=== PATIENT | female | born 1980 | race Caucasian/White ===

== ENCOUNTER 2017-01-08 18:47 | Observation (INO) ==
[2017-01-08 19:15] LABS: Bilirubin,Urine Negative (Negative); Blood,Urine Negative (Negative); Clarity,Urine Cloudy (Clear); Color,Urine Yellow (Yellow); Glucose,Urine (UA) Normal (Normal); Ketones,Urine 40 mg/dL (Negative); Leukocyte Esterase,Urine Moderate (Negative); Nitrite,Urine Negative (Negative); PH,Urine 6.5 pH Units (5.0-8.0); Protein,Urine Trace mg/dL (Neg-Trace); Specific Gravity,Urine 1.023 (1.010-1.025); Urobilinogen,Urine Normal (Normal)
[2017-01-08 19:20] LABS: Bacteria,Urine Moderate per hpf (None-Few); Hyaline Casts,Urine None Seen per lpf (None-Few); RBC,Urine 0-3 per hpf (0-3); Squamous Epithelial Cell,Urine Many per lpf (None-Few); WBC,Urine 15-30 per hpf (0-3)
[2017-01-08] MEDS ORDERED: 0.9 % Sodium Chloride 500 ML IVC ONE (21:43)
[2017-01-08] MEDS ORDERED: 0.9 % Sodium Chloride 1,000 ML IVC SCH (21:45)
[2017-01-08] MEDS ORDERED: clonazePAM 0.5 MG TABLET PO PRN ×2 (22:07→23:41)
--- NOTE | 2017-01-08 22:25 | OB/GYN History & Physical ---
Date of Encounter: 01/08/17 Time of Encounter: 22:12 Assessment and Plan (1) 34 weeks gestation of Current visit: Yes Status: Acute (2) uterine contractions in third trimester, antepartum Current visit: Yes Status: Acute SVE ft/thick per RN, repeat SVE unchanged (3) AMA (advanced maternal age) multigravida 35+ Current visit: Yes Status: Acute Pt had normal NT and normal cell free DNA Qualifiers: Trimester: third trimester Qualified Code(s): O09.523 - Supervision of elderly multigravida, third trimester (4) Gestational diabetes mellitus Current visit: Yes Status: Acute Pt reports glucose has been well controlled Qualifiers: Gestational diabetes mellitus control: diet-controlled Trimester: third trimester Qualified Code(s): O24.410 - Gestational diabetes mellitus in , diet controlled (5) Two vessel umbilical cord in kaur , antepartum Current visit: Yes Status: Acute Last growth US 12/23 WNL, will repeat US tonight (6) Anxiety Current visit: Yes Status: Acute Pt on Klonipin. Will continue home med. (7) Depression affecting in third trimester, antepartum Current visit: Yes Status: Acute Continue Zoloft (8) Variable heart rate decelerations, antepartum Current visit: Yes Status: Acute NST with intermittent variable declerations. Moderate variability and 15x15 accels present. Will get US to check fluid this evening. Plan for IV fluid bolus and prolonged monitoring. Pt has not taken her Klonipin for the last 3 days. Will give her this medication to prevent withdrawal. History of Present Illness Chief complaint: contractions/pressure HPI: Ms. Herring is a 36 year old female presenting at 34w2d with c/o contractions and pelvic pressure. She denies LOF or VB prior to arrival but has had a small amount of bloody show since her first SVE in triage. This has been complicated by AMA, diet controlled GDM, and 2 vessel cord. She last had a growth US for 2 vessel cord on 12/23 that showed NICK 19 and EFW 56%. Pt also reports a history of anxiety and depression for which she was on xanax and zoloft prior to . She is now taking zoloft 50mg daily and Klonipin 0.5mg BID PRN. She also reports tobacco use early in . Blood type A positive. Rubella immune. Serologies negative. GBS unknown. Past Med Surg Social Fam HX - Past Medical History Medical history: no medical history Psychiatric history: anxiety, panic disorder - Past Surgical History Surgical History: other - Social History Smoking Status: Former smoker Smokeless Tobacco Status: No Alcohol use: none Drug use: none - Family History Father Living Status: Still Living Hx Family Cancer: Yes (LUNG CANCER) Obstetrical History - Pregnancies : 3 Para: 2 Term: 2 : 0 Ab's: 0 Livin - History/Complications History/Complications: MERCEDES with first , full term delivery Medications and Allergies Klonopin 0.5 mg PO BID PRN 01/08/17 [History] Vit Calc,Iron,Folic [ Vitamins] 1 tab PO DAILY 01/08/17 [ History] Sertraline [Zoloft] 50 mg PO DAILY 01/08/17 [History] Allergies Penicillins Adverse Reaction (Verified 01/08/17 18:57) Rash Review of System OB All systems PM: reviewed and no additional remarkable complaints except as stated Exam - Constitutional Constitutional: well developed, well nourished, no acute distress - HEENT HEENT: Mucus Membranes Moist - Lungs Respiratory exam: CTAB - Cardiovascular Cardiovascular exam: RRR, +S1, +S2 - Abdomen Abdomen: Present: gravid, non tender - Extremities Extremities exam: normal inspection - Cervix Dilation: 0 (FT per RN) - Uterus Uterus exam: Present: normal size - Anus/Rectum Anus/Rectum: Present: normal perianal skin Results Abnormal lab results Urine Clarity Cloudy (Clear) A 01/08/17 18:57 Urine Ketones 40 mg/dL (Negative) H 01/08/17 18:57 Ur Leukocyte Esterase Moderate (Negative) H 01/08/17 18:57 Urine Microscopic WBC 15-30 per hpf (0-3) H 01/08/17 18:57 Ur Squamous Epith Cells Many per lpf (None-Few) H 01/08/17 18:57 Urine Bacteria Moderate per hpf (None-Few) H 01/08/17 18:57 Ur Culture Indicated? YES (NO) A 01/08/17 18:57 All other labs normal. - VTE Reasons for not Prescribing Prophylaxis: Treatment not Indicated - Low risk for VTE
[2017-01-09 00:06] LABS: Basophils % 0.3 %; Eosinophils # 0.2 K/mcL (0.0-0.6); Eosinophils % 1.1 %; Hemoglobin 11.5 g/dL (11.5-15.4); Immature Granulocytes % 1.3 % (0-4); Lymphocytes # 2.5 K/mcL (0.6-4.6); Lymphocytes % 17.6 %; Mean Corpuscular HGB Conc 33.8 g/dL (31.6-35.5); Mean Corpuscular Hemoglobin 30.2 pg (28.0-33.3); Mean Corpuscular Volume 89.2 fL (83.0-100.0); Mean Platelet Volume 10.4 fL (9.4-12.4); Monocytes # 0.9 K/mcL (0.0-1.3); Monocytes % 6.6 %; Neutrophils # 10.4 K/mcL (1.6-8.9); Platelet Count 274 K/mcL (140-400); Red Blood Count 3.81 M/mcL (3.82-4.97); Red Cell Distribution Width 13.2 % (11.5-14.5); Segmented Neutrophils % 73.1 %
[2017-01-09] MEDS ORDERED: Acetaminophen 325 MG TABLET PO ONE (03:40)
[2017-01-09] MEDS ORDERED: Prenatal Vit/FA 1 EACH TABLET PO SCH (09:00)
--- NOTE | 2017-01-09 10:01 | OB Labor Progress Note ---
Date of Encounter: 01/09/17 Time of Encounter: 09:59 Labor Progress Note - Subjective Subjective: Patient doing well, discussed POC with patient. Patient denies any questions or concerns. - Heart Tones Heart Tones: 130 bpm moderate variability - [place]: irregular - Interventions Interventions: Discussed patient and plan of care with Dr. Díaz. Patient is to be discharged to go to office for BPP. - Plan Plan: Discharge at this time. Patient taken to office for BPP and further evaluation per Dr. Díaz.
== END 2017-01-09 14:30 | disposition home or self-care (01) ==
LOC: 1NENULAB

== ENCOUNTER 2017-01-21 02:33 | Inpatient (IN) ==
--- NOTE | 2017-01-21 02:13 | OB/GYN History & Physical ---
Date of Encounter: 01/21/17 Time of Encounter: 02:09 Assessment and Plan (1) 36 weeks gestation of Current visit: Yes Status: Acute SVE by RN with cervical changes - from this morning Contractions are 2-4 min apart Admit to labor and delivery for active labor Continue FHR and toco, current baseline 150 with occasional late decels GBS negative A positive blood type BP 112/58 Will augment with Pitocin if needed for adequate contraction pattern Pain medication or epidural if requested Anticipate (2) Variable heart rate decelerations, antepartum Current visit: No Status: Acute NST with intermittent variable and late decels Plan for IV fluid bolus and monitoring Consideration for possible (3) Gestational diabetes mellitus Current visit: No Status: Acute patient reports glucose has been well-controlled Qualifiers: Gestational diabetes mellitus control: diet-controlled Trimester: third trimester Qualified Code(s): O24.410 - Gestational diabetes mellitus in , diet controlled (4) Two vessel umbilical cord in kaur , antepartum Current visit: No Status: Acute 2 vessel umbilical cord noted on US 01/08/17 (5) AMA (advanced maternal age) multigravida 35+ Current visit: No Status: Acute Qualifiers: Trimester: third trimester Qualified Code(s): O09.523 - Supervision of elderly multigravida, third trimester (6) Polyhydramnios Current visit: Yes Status: Acute Initial NICK 33 On last US 01/08/2017 NICK 14.79 Qualifiers: Fetus number: single or unspecified fetus Trimester: third trimester Qualified Code(s): O40.3XX0 - Polyhydramnios, third trimester, not applicable or unspecified History of Present Illness Chief complaint: Contractions HPI: Ms. Herring is a 36 year old female 36 weeks 1 day presents for contractions. She is a patient of OB Dr. Almanza, seen and evaluated yesterday in the office at 1300. Cervix 3cm/80%/-2. Scheduled for induction 01/27. Her estimated due date is 02/17/2017. has been complicated with gestational diabetes (diet controlled), 2 vessel cord, polyhydramnios NICK 33, and AMA. Reports contractions throughout the day with no regular intervals initially however at 2300 became more regular 4 to 5 minutes apart with a brief period of time that was 2 minutes apart. Currently is 4 minutes apart. Reports some vaginal spotting requiring 6 panty liners today after vaginal exam today, has been using for the past several weeks. Denies any big gush of clear fluid or water breaking. She reports a mild headache with some blurry vision. Also associated nausea without emesis. Denies any fever, recent illness, abdominal tenderness, or urinary symptoms. BPs have been normotensive throughout . She endorses diminished movements over the past 2 days. BPP score 8/8 at office visit. GBS negative today. HBV nonreactive, Rubella positive , other serologies reviewed and are negative. She is A positive blood type. Last , delivery within 10 minutes she reports after AROM. Past Med Surg Social Fam HX - Past Medical History Medical history: no medical history Psychiatric history: anxiety, panic disorder - Past Surgical History Surgical History: other - Social History Smoking Status: Former smoker Smokeless Tobacco Status: No Alcohol use: none Drug use: none - Family History Father Living Status: Still Living Hx Family Cancer: Yes (LUNG CANCER) Obstetrical History - Pregnancies : 3 Para: 2 Term: 2 : 0 Ab's: 0 Livin Medications and Allergies Klonopin 0.5 mg PO BID PRN 01/08/17 [History] Vit Calc,Iron,Folic [ Vitamins] 1 tab PO DAILY 01/08/17 [ History] Sertraline [Zoloft] 50 mg PO DAILY 01/08/17 [History] Allergies Penicillins Adverse Reaction (Verified 01/08/17 18:57) Rash Review of System OB All systems PM: reviewed and no additional remarkable complaints except as stated Exam - Constitutional Constitutional: well developed, well nourished, no acute distress - HEENT HEENT: Normocephaly, Mucus Membranes Moist - Neck Neck exam: full ROM, normal inspection, supple, trachea midline - Lungs Respiratory exam: CTAB - Cardiovascular Cardiovascular exam: RRR, +S1, +S2 - Abdomen Abdomen: Present: bowel sounds normal, gravid, non tender - Extremities Extremities exam: full ROM, normal capillary refill, normal inspection, pedal edema (mild) Deep Tendon Reflex Grade: 2+ Normal - Cervix Dilation: 5 (per RN) Effacement: 80 (per RN) - Uterus Uterus exam: Present: normal size Results Result Diagrams: 01/21/17 02:45 All other labs normal. - VTE Reasons for not Prescribing Prophylaxis: Treatment not Indicated - Low risk for VTE
[2017-01-21] MEDS ORDERED: Famotidine 20 MG/2 ML VIAL IVP PRN (02:36)
[2017-01-21] MEDS ORDERED: Metoclopramide 10 MG/2 ML VIAL IVP PRN (02:36)
[2017-01-21] MEDS ORDERED: Naloxone 0.4 MG/ML INJ IVP PRN (02:36)
[2017-01-21] MEDS ORDERED: Ringers Solution, Lactated 1,000 ML IVC SCH (02:45)
[2017-01-21 02:54] LABS: Red Blood Count 4.36 M/mcL (3.82-4.97)
[2017-01-21 02:56] LABS: Hematocrit 38.2 % (35.3-44.9); Hemoglobin 12.9 g/dL (11.5-15.4); Mean Corpuscular HGB Conc 33.8 g/dL (31.6-35.5); Mean Corpuscular Hemoglobin 29.6 pg (28.0-33.3); Mean Corpuscular Volume 87.6 fL (83.0-100.0); Mean Platelet Volume 10.7 fL (9.4-12.4); Platelet Count 277 K/mcL (140-400); Red Cell Distribution Width 13.3 % (11.5-14.5)
[2017-01-21 03:15] LABS: Lymphocytes # 2.5 K/mcL (0.6-4.6); Monocytes # 0.8 K/mcL (0.0-1.3); Neutrophils # 37.9 K/mcL (1.6-8.9)
[2017-01-21 03:17] LABS: Platelet Estimate Normal (Normal); Toxic Granulation Present (Not Present)
[2017-01-21 03:18] LABS: Polychromasia 1+ (Not Present)
[2017-01-21] MEDS ORDERED: Oxytocin 20 units/ LR 1000 mL 20 UNIT/1,000 ML BAG IVC ONE (03:56)
--- NOTE | 2017-01-21 04:07 | OB Labor Progress Note ---
Date of Encounter: 01/21/17 Time of Encounter: 04:03 Labor Progress Note - Subjective Subjective: Pt reports uc's getting stronger. No other c/o. - Vital Signs Vital Signs: AF - Cervix Cervix: 7/80/-2 - Heart Tones Heart Tones: Fair variability, late decels and variabiltiy are note , now improved - [place]: uc's q 2 min. - Interventions Interventions: AROM large amt clear fluid - Plan Plan: D/w pt options of proceeding with primary vs trial of labor with close observation of FHT's. Pt desires trial of labor and is aware of risk for emergent .
[2017-01-21] MEDS ORDERED: Lidocaine 1% 20 ML MDV ONE (04:33)
--- NOTE | 2017-01-21 04:54 | OB/GYN Procedure Note ---
Delivery - Delivery Date: 01/21/17 Provider: Anotny Almanza Intrapartum events: polyhydramnios (leukocytosis), other(please specify) Delivery induction: none Delivery monitor: external FHT, external uterine Anesthesia: local - Infant (s) A Delivery Date: 01/21/17 Delivery Time: 04:25 Presentation: vertex Position: NAJMA Route of delivery: Gender: Female Viability: Viable Pounds: 7 Ounces: 1 at 1 minute: 7 at 5 mins: 8 Shoulder Dystocia: not encountered Specimens collected: cord blood Placenta: spontaneous Cord: 2 umbilical vessels - Repair Episiotomy: none Laceration Description: Perineal - 1st Degree - Complications Delivery complications: none - Disposition Mom disposition: stable in LDR disposition: taken to nursery - Comments Comments: Pt presented at 36w1d in labor. FHT's noted to have occ variable and occ late decels. Pt now s/p of liveborn female infant. 1st degree laceration repaired with 3-0 vicryl with 2 interupted stitches under local anesthesia.
[2017-01-21] MEDS ORDERED: Measles/Mumps/Rubella Vacc 0.5 ML VIAL SQ PRN (06:00)
[2017-01-21] MEDS ORDERED: Oxytocin 20 units/ LR 1000 mL 20 UNIT/1,000 ML BAG IVC SCH (06:00)
[2017-01-21] MEDS ORDERED: Rho Immune Globulin 1,500 UNIT SYRINGE IM PRN (06:00)
[2017-01-21] MEDS ORDERED: clonazePAM 0.5 MG TABLET PO PRN (06:00)
[2017-01-21] MEDS: Acetaminophen 325 MG TABLET PO PRN ×2 (06:20→22:36)
[2017-01-21] MEDS: Prenatal Vit/FA 1 EACH TABLET PO SCH (08:54)
[2017-01-21] MEDS: Ibuprofen 600 MG TABLET PO PRN ×2 (10:15→18:58)
[2017-01-22 03:58] LABS: Basophils % 0.3 %; Segmented Neutrophils % 85.2 %
[2017-01-22 03:59] LABS: Basophils # 0.1 K/mcL (0.0-0.2); Eosinophils # 0.3 K/mcL (0.0-0.6); Eosinophils % 1.1 %; Hematocrit 29.6 % (35.3-44.9); Hemoglobin 9.8 g/dL (11.5-15.4); Lymphocytes # 2.1 K/mcL (0.6-4.6); Lymphocytes % 8.1 %; Mean Corpuscular HGB Conc 33.1 g/dL (31.6-35.5); Mean Corpuscular Hemoglobin 29.3 pg (28.0-33.3); Mean Corpuscular Volume 88.6 fL (83.0-100.0); Mean Platelet Volume 10.5 fL (9.4-12.4); Monocytes # 0.9 K/mcL (0.0-1.3); Monocytes % 3.3 %; Platelet Count 236 K/mcL (140-400); Red Blood Count 3.34 M/mcL (3.82-4.97); Red Cell Distribution Width 13.2 % (11.5-14.5)
[2017-01-22 04:19] LABS: Neutrophils # 22.2 K/mcL (1.6-8.9)
[2017-01-22 04:31] LABS: Platelet Estimate Normal (Normal)
[2017-01-22 04:32] LABS: Large Platelets Present (Not Present); Toxic Granulation Present (Not Present)
[2017-01-22 08:28] VITALS: BP 100/65
[2017-01-22] MEDS: Prenatal Vit/FA 1 EACH TABLET PO SCH (09:00)
[2017-01-22] MEDS: Ibuprofen 600 MG TABLET PO PRN (09:00)
--- NOTE | 2017-01-22 14:00 | Discharge Summary ---
Date of Encounter: 01/22/17 Time of Encounter: 13:58 - Discharge Diagnosis (1) (normal spontaneous vaginal delivery) Priority: Primary Status: Acute Comments: Pt meeting all milestones. (2) Leukocytosis, unspecified Priority: Secondary Status: Acute Comments: WBC with significant improvement . Qualifiers: Leukocytosis type: unspecified Qualified Code(s): D72.829 - Elevated white blood cell count, unspecified (3) Mother currently breast-feeding Priority: Secondary Status: Acute Comments: Breastpump rx given. - Discharge Medications Prescriptions: Ibuprofen [Motrin] 600 mg PO Q6HR PRN #60 tablet PRN Reason: MODERATE PAIN Docusate [Colace] 100 mg PO BID #60 capsule Home Medications: Klonopin 0.5 mg PO BID PRN 01/08/17 [History] Vit Calc,Iron,Folic [ Vitamins] 1 tab PO DAILY 01/08/17 [ History] Sertraline [Zoloft] 50 mg PO DAILY 01/08/17 [History] Docusate [Colace] 100 mg PO BID #60 capsule 01/22/17 [Rx] Ibuprofen [Motrin] 600 mg PO Q6HR PRN #60 tablet 01/22/17 [Rx] Allergies/Adverse Reactions: Allergies Penicillins Adverse Reaction (Verified 01/08/17 18:57) Rash Data Procedures and tests throughout hospitalization: Laboratory Tests 01/21/17 01/22/17 02:45 03:37 WBC 41.2 H* 26.1 H RBC 4.36 3.34 L Hgb 12.9 9.8 L D Hct 38.2 29.6 L MCV 87.6 88.6 MCH 29.6 29.3 MCHC 33.8 33.1 RDW 13.3 13.2 Plt Count 277 236 MPV 10.7 10.5 Immature Gran % 2.0 Seg Neutrophils % 86.0 85.2 Band Neutrophils % 6.0 H Lymphocytes % 6.0 8.1 Monocytes % 2.0 3.3 Eosinophils % 1.1 Basophils % 0.3 Neutrophils # 37.9 H 22.2 H Lymphocytes # 2.5 2.1 Monocytes # 0.8 0.9 Eosinophils # 0.3 Basophils # 0.1 Toxic Granulation Present A Present A Platelet Estimate Normal Normal Large Platelets Present A Polychromasia 1+ A Labs on day of discharge: Labs from last 24 hours 01/22/17 03:37 WBC 26.1 H RBC 3.34 L Hgb 9.8 L D Hct 29.6 L MCV 88.6 MCH 29.3 MCHC 33.1 RDW 13.2 Plt Count 236 MPV 10.5 Immature Gran % 2.0 Seg Neutrophils % 85.2 Lymphocytes % 8.1 Monocytes % 3.3 Eosinophils % 1.1 Basophils % 0.3 Neutrophils # 22.2 H Lymphocytes # 2.1 Monocytes # 0.9 Eosinophils # 0.3 Basophils # 0.1 Toxic Granulation Present A Platelet Estimate Normal Large Platelets Present A Date of admission: 01/21/17 02:34 Primary care physician: Madeleine Molina CNP Consults: 01/21/17 06:00 Consult to Civil Preparedness Officer [CONS] Routine Comment: Vaginal delivery, consult needed Discharging clinician: Leilani Rico Anticipated date of discharge: 01/22/17 - Patient Status Disposition: Home, Self-Care Condition: Good Functional capacity at discharge: independent ambulation Overall status at discharge: patient is progressing back to baseline - Discharge Instructions Follow Up With: Madeleine Molina CNP [Primary Care Provider] - Antony Almanza MD [Partnered Physician] - Additional Instructions: Perineal Care: Always wipe front to back Change your pad frequently Use your leandro bottle with warm water and spray front to back Do not douche, use tampons, have sexual intercourse or put anything in your vagina for 4-6 weeks after delivery Bleeding: Vaginal bleeding can last up to 6 weeks Your menstrual period may return as early as 6 weeks after you are discharged from the hospital Josef/Stitches Care: Vaginal Delivery Vaginal stitches will dissolve within 4-6 weeks Follow perineal care instructions Care Stitches will dissolve on their own If you have josef, they will need to be removed in the doctors office within 5-7 days. You may shower with stitches or josfe Drip plan or soapy water over the incision to clean. Pat dry gently with a clean towel. Make sure you completely dry under the skin folds DO NOT USE powders, lotions, rubbing alcohol or hydrogen peroxide on or around your incision. This will slow your wound healing It is normal to have soreness, burning, tingling, itchiness and/or numbness as your incision heals Activity: Rest frequently Do not lift anything heavier than a gallon of milk, up to 10-15 pounds No driving for 1-2 weeks for Vaginal delivery No driving for 2-4 weeks for delivery Take stairs slowly, one at a time Gradually increase your daily activity until you are back to your normal routine Do not exercise until you have had your follow-up appointment Bathing: Take a shower daily Do not take a tub bath for the first 4 weeks Diet: Drink plenty of water and fruit juices Eat a well-balanced diet with foods high in fiber such as fruits and vegetables Depression: Your hormones have a major impact on your feelings and emotions. Hormone imbalance may cause changes in your mood, creating unfamiliar thoughts and actions. Support is available to help you understand and cope with these feelings and mood changes. If you answer yes to any of the following questions, please call your health care provider: Are you having trouble sleeping? Are you feeling isolated? Have you lost your appetite? Are you having thoughts of hurting yourself or others? WARNING SIGNS: Heavy bleeding from the vagina (blood is bright red and soaks a sanitary pad in an hour or less.) Passing a blood clot larger than your fist Discharge from the vagina that has a bad odor Temperature over 100.4 F, or if you feel cold and have chills An episiotomy site that is warm, swollen or oozing. Use a mirror if needed Urination (pee) that is painful, very red and swollen or leaking fluid An incision that is painful, very red and swollen and leaking fluid An incision that has come open Breasts that are painful or full with flu like symptoms Redness, warmth or swelling in the calf of your leg Trouble breathing, dizziness, visual disturbance or faintness *Notify your health care provider immediately or go to the nearest Emergency Room if you experience any of the above signs.* To contact the nurses station 24 hours a day, For non-urgent, routine questions, please call the office at - Diet and Activity Activity: increase activity as tolerated Hospital Course Reason for admission: active labor Delivery: Episiotomy: none Laceration: 1st degree Other procedures: none complications: none Discharge diagnosis: IUP at term delivered baby: female Hospital course: - Delivery Date: 01/21/17 Provider: Antony Almanza Intrapartum events: polyhydramnios (leukocytosis), other(please specify) Delivery induction: none Delivery monitor: external FHT, external uterine Anesthesia: local - (s) Infant A Infant Delivery Date: 01/21/17 Delivery Time: 04:25 Presentation: vertex Position: NAJMA Route of delivery: Gender: Female Viability: Viable Pounds: 7 Ounces: 1 at 1 minute: 7 at 5 mins: 8 Shoulder Dystocia: not encountered Specimens collected: cord blood Placenta: spontaneous Cord: 2 umbilical vessels - Repair Episiotomy: none Laceration Description: Perineal - 1st Degree - Complications Delivery complications: none - Disposition Mom disposition: discharge home PPD#1 [place] disposition: observation in nursery Time Attestation: Total time spent providing and/or coordinating discharge services: Time Spent: Less than 30 minutes Exam - Constitutional Vitals: Temp Pulse Resp BP Pulse Ox 97.4 F L 83 16 100/65 98 01/22/17 08:00 01/22/17 08:00 01/22/17 09:16 01/22/17 08:00 01/22/17 08:00 General appearance IM: A&O X 3 - Respiratory Respiratory exam: Present: CTAB - Cardiovascular Cardiovascular exam IM: Present: RRR, +S1, +S2 - GI/Abdominal GI/Abdominal exam IM: soft - External exam: normal external exam Uterine Tone: Firm - Extremities Exam Extremities exam IM: Present: normal inspection, pedal edema (mild edema bilaterally) - Neurological Exam Neurological exam: normal gait, oriented X3 - Psychiatric Additional comments: reports good mood on Zoloft and Klonipin
== END 2017-01-22 15:45 | disposition home or self-care (01) | DRG 560 ==
LOC: 1NENULAB → 1NENUOBS 07:29
PROVIDERS: ADMIT Obstetrics & Gynecology; ATTEND Obstetrics & Gynecology

== ENCOUNTER 2022-01-14 11:02 | Inpatient (IN) ==
[2022-01-14] MEDS ORDERED: Naloxone 0.4 MG/ML INJ IVP PRN (16:03)
[2022-01-14] MEDS: Acetaminophen 325 MG TABLET PO PRN (16:52)
[2022-01-14] MEDS ORDERED: Morphine Sulfate 2 MG/ML SYRINGE IVP ONE (16:58)
[2022-01-14] MEDS: Ketorolac 30 MG/ML VIAL IVP PRN (19:59)
[2022-01-14] MEDS: CeFAZolin 2,000 MG/120 ML BAG IVPB SCH (22:24)
[2022-01-14] MEDS: *HR* OxyCODONE/APAP 5/325 TABLET PO PRN (22:24)
[2022-01-14] MEDS: Melatonin 3 MG TABLET PO PRN (23:16)
[2022-01-15] MEDS: Ketorolac 30 MG/ML VIAL IVP PRN ×3 (02:10→20:53)
[2022-01-15] MEDS: CeFAZolin 2,000 MG/120 ML BAG IVPB SCH ×3 (04:25→20:41)
[2022-01-15] MEDS: *HR* Enoxaparin 40 MG/0.4 ML SYRINGE SQ SCH (04:33)
[2022-01-15 08:02] LABS: Hematocrit 27.8 % (35.3-44.9); Hemoglobin 9.3 g/dL (11.5-15.4); Mean Corpuscular HGB Conc 33.5 g/dL (31.6-35.5); Mean Corpuscular Hemoglobin 28.2 pg (28.0-33.3); Mean Corpuscular Volume 84.2 fL (83.0-100.0); Nucleated Red Blood Cells 0.1 /100 WBC (0); Platelet Count 377 K/mcL (140-400); Red Cell Distribution Width 14.3 % (11.5-14.5); White Blood Count 19.7 K/mcL (4.3-11.1)
[2022-01-15 08:18] LABS: Alanine Aminotransferase 19 Units/L (7-52); Albumin 2.6 g/dL (3.5-5.7); Alkaline Phosphatase 95 Units/L (34-104); Aspartate Amino Transferase 29 Units/L (13-39); BUN/Creatinine Ratio 14 (6-26); Bilirubin,Total 0.4 mg/dL (0.3-1.0); Blood Urea Nitrogen 9 mg/dL (6-20); Calcium 7.8 mg/dL (8.6-10.3); Carbon Dioxide 23 mEq/L (23-29); Chloride 108 mEq/L (98-107); Globulin 2.7 g/dL (2.4-3.5); Glucose 92 mg/dL (70-105); Osmolality,Calculated 292 (280-300); Potassium 2.9 mEq/L (3.5-5.1); Sodium 142 mEq/L (136-145); Total Protein 5.3 g/dL (6.4-8.9); eGFR For African Americans > 60 (> 60); eGFR For Non-African Americans > 60 (> 60)
[2022-01-15 08:31] LABS: Basophils # 0.4 K/mcL (0.0-0.2); Lymphocytes # 1.2 K/mcL (0.6-4.6); Monocytes # 1.2 K/mcL (0.0-1.3); Neutrophils # 16.2 K/mcL (1.6-8.9); Platelet Estimate Normal (Normal)
[2022-01-15 09:14] LABS: Source,Synovial Fluid right knee
[2022-01-15 10:37] LABS: Appearance,Synovial Fluid Cloudy (Clear-Hazy); Color,Synovial Fluid Straw (Straw)
[2022-01-15] MEDS ORDERED: CeFAZolin Syr 2,000MG/20 ML 2,000 MG/20 ML SYRINGE IVPB ONE (10:42)
[2022-01-15] MEDS ORDERED: *HR* LORazepam 1 MG TABLET PO ONE (10:56)
[2022-01-15] MEDS ORDERED: Famotidine 20 MG TABLET PO ONE (11:00)
[2022-01-15] MEDS ORDERED: Celecoxib 200 MG CAPSULE PO ONE (11:00)
[2022-01-15] MEDS ORDERED: *HR* OxyCODONE Immed Rel 5 MG TABLET PO PRN (11:08)
[2022-01-15] MEDS: Ringers Solution, Lactated 1,000 ML IVC SCH (11:10)
[2022-01-15] MEDS ORDERED: *HR* Labetalol 20 MG/4 ML SYRINGE IVP PRN (11:14)
[2022-01-15] MEDS ORDERED: Racepinephrine Neb 0.5 ML VIAL IH PRN (11:14)
[2022-01-15] MEDS ORDERED: Albuterol 2.5 MG/3 ML NEBULIZER IH PRN (11:14)
[2022-01-15] MEDS ORDERED: Ipratropium Neb 0.5 MG NEBULIZER IH PRN (11:14)
[2022-01-15] MEDS ORDERED: flumazeniL 0.5 MG/5 ML VIAL IVP PRN (11:14)
[2022-01-15] MEDS ORDERED: Ondansetron 4 MG/2 ML VIAL IVP PRN (11:14)
[2022-01-15] MEDS ORDERED: Promethazine 6.25 MG in Water for inj. (sterile) 20 ML IVPB PRN (11:14)
[2022-01-15] MEDS ORDERED: *HR* Meperidine 25 MG/ML SYRINGE IVP PRN (11:14)
[2022-01-15] MEDS ORDERED: Ondansetron 4 MG/2 ML VIAL ONE (11:35)
[2022-01-15] MEDS ORDERED: Lidocaine -MPF 2% 2 ML VIAL ONE (11:35)
[2022-01-15] MEDS ORDERED: *HR* Propofol 200 MG/20 ML VIAL IVP ONE ×2 (11:38→12:36)
[2022-01-15] MEDS ORDERED: *HR* Midazolam HCl 2 MG/2 ML VIAL ONE (11:38)
[2022-01-15] MEDS ORDERED: *HR* FentaNYL (PF) 100 MCG/2 ML VIAL ONE ×3 (11:38→12:52)
[2022-01-15] MEDS ORDERED: Lidocaine 1% 20 ML MDV ONE (12:05)
[2022-01-15] MEDS ORDERED: *HR* EPINEPHrine 30 MG/30 ML MDV ONE (12:05)
[2022-01-15] MEDS ORDERED: *HR* HYDROMORPHONE 2 MG/ML VIAL ONE (12:27)
[2022-01-15] MEDS ORDERED: Ketamine HCL *QUVA* 50mg (1mL) SYRINGE ONE (12:35)
[2022-01-15] MEDS ORDERED: dexmedeTOMIDine in 0.9 % NaCL 80 MCG/20 ML MLS ONE (12:37)
[2022-01-15] MEDS ORDERED: *HR* Magnesium Sulfate 1 GM/2 ML VIAL ONE (12:39)
[2022-01-15] MEDS: *HR* FentaNYL (PF) 100 MCG/2 ML VIAL IVP PRN ×2 (13:56→14:04)
[2022-01-15] MEDS: *HR* HYDROmorphone PF 0.5 MG/0.5 ML SYRINGE IVP PRN ×2 (14:14→14:22)
[2022-01-15] MEDS: *HR* OxyCODONE/APAP 5/325 TABLET PO PRN (20:37)
[2022-01-16] MEDS: Acetaminophen 325 MG TABLET PO PRN (00:37)
[2022-01-16] MEDS: Melatonin 3 MG TABLET PO PRN ×2 (00:37→21:24)
[2022-01-16] MEDS: Ketorolac 30 MG/ML VIAL IVP PRN ×4 (02:53→23:14)
[2022-01-16] MEDS: *HR* OxyCODONE/APAP 5/325 TABLET PO PRN ×3 (02:57→20:18)
[2022-01-16] MEDS: CeFAZolin 2,000 MG/120 ML BAG IVPB SCH ×3 (04:36→21:24)
[2022-01-16] MEDS: *HR* Enoxaparin 40 MG/0.4 ML SYRINGE SQ SCH (05:03)
[2022-01-16 06:23] LABS: Hepatitis B Surface Antigen Nonreactive (Nonreactive)
[2022-01-16 06:52] LABS: Hepatitis C Virus Antibody Nonreactive (Nonreactive)
[2022-01-16 06:53] LABS: Hepatitis B Core IgM Nonreactive (Nonreactive)
[2022-01-16 06:54] LABS: Hepatitis A Antibody IgM Nonreactive (Nonreactive)
[2022-01-16 08:47] LABS: Hematocrit 24.3 % (35.3-44.9); Hemoglobin 8.2 g/dL (11.5-15.4); Mean Corpuscular HGB Conc 33.7 g/dL (31.6-35.5); Mean Corpuscular Hemoglobin 28.8 pg (28.0-33.3); Mean Corpuscular Volume 85.3 fL (83.0-100.0); Platelet Count 384 K/mcL (140-400); Red Blood Count 2.85 M/mcL (3.82-4.97); Red Cell Distribution Width 14.8 % (11.5-14.5); White Blood Count 17.5 K/mcL (4.3-11.1)
[2022-01-16 09:02] LABS: Potassium 3.5 mEq/L (3.5-5.1)
[2022-01-16] MEDS: Ringers Solution, Lactated 1,000 ML IVC SCH (09:08)
[2022-01-16] MEDS ORDERED: Lidocaine Viscous Oral Soln 15 ML SOLUTION MM PRN (10:02)
[2022-01-16] MEDS ORDERED: 0.9 % Sodium Chloride 500 ML IVC ONE (10:03)
[2022-01-16] MEDS: *HR* FentaNYL (PF) 100 MCG/2 ML VIAL IVP PRN ×8 (10:30→10:55)
[2022-01-16] MEDS: *HR* Midazolam HCl 5 MG/5 ML VIAL IVP PRN ×8 (10:30→10:55)
[2022-01-16 10:35] LABS: Lymphocytes # 1.4 K/mcL (0.6-4.6); Monocytes # 1.1 K/mcL (0.0-1.3); Neutrophils # 15.1 K/mcL (1.6-8.9); Platelet Clumps Few (Not Present); Platelet Estimate Normal (Normal); Toxic Granulation Present (Not Present)
[2022-01-16] MEDS ORDERED: hydrOXYzine pamoate 25 MG CAPSULE PO PRN (12:10)
[2022-01-16] MEDS: hydrOXYzine pamoate 25 MG CAPSULE PO PRN (21:24)
[2022-01-16] MEDS: *HR* LORazepam 0.5 MG TABLET PO PRN (21:24)
[2022-01-17] MEDS: *HR* OxyCODONE/APAP 5/325 TABLET PO PRN
[2022-01-17 02:44] LABS: BUN/Creatinine Ratio 23 (6-26); Blood Urea Nitrogen 15 mg/dL (6-20); C-Reactive Protein 89 mg/L (Less than 10); Calcium 7.4 mg/dL (8.6-10.3); Carbon Dioxide 23 mEq/L (23-29); Chloride 109 mEq/L (98-107); Glucose 91 mg/dL (70-105); Osmolality,Calculated 292 (280-300); Potassium 3.2 mEq/L (3.5-5.1); Sodium 141 mEq/L (136-145); eGFR For African Americans > 60 (> 60); eGFR For Non-African Americans > 60 (> 60)
[2022-01-17 02:51] LABS: Basophils # 0.1 K/mcL (0.0-0.2); Basophils % 0.3 %; Eosinophils # 0.1 K/mcL (0.0-0.6); Eosinophils % 0.5 %; Hematocrit 25.1 % (35.3-44.9); Hemoglobin 8.5 g/dL (11.5-15.4); Immature Granulocytes % 8.1 % (0-4); Lymphocytes # 2.5 K/mcL (0.6-4.6); Lymphocytes % 16.6 %; Mean Corpuscular HGB Conc 33.9 g/dL (31.6-35.5); Mean Corpuscular Hemoglobin 28.8 pg (28.0-33.3); Mean Corpuscular Volume 85.1 fL (83.0-100.0); Mean Platelet Volume 9.7 fL (9.4-12.4); Monocytes # 0.7 K/mcL (0.0-1.3); Monocytes % 4.4 %; Neutrophils # 10.7 K/mcL (1.6-8.9); Platelet Count 449 K/mcL (140-400); Red Blood Count 2.95 M/mcL (3.82-4.97); Red Cell Distribution Width 14.7 % (11.5-14.5); Segmented Neutrophils % 70.1 %; White Blood Count 15.3 K/mcL (4.3-11.1)
[2022-01-17 03:20] LABS: Toxic Granulation Present (Not Present)
[2022-01-17 03:21] LABS: Hypochromasia Present (Not Present)
[2022-01-17] MEDS: hydrOXYzine pamoate 25 MG CAPSULE PO PRN ×3 (03:30→18:21)
[2022-01-17] MEDS: Ketorolac 30 MG/ML VIAL IVP PRN ×3 (07:43→20:37)
[2022-01-17] MEDS: *HR* Enoxaparin 40 MG/0.4 ML SYRINGE SQ SCH (07:44)
[2022-01-17] MEDS: CeFAZolin 2,000 MG/120 ML BAG IVPB SCH ×3 (07:55→19:45)
[2022-01-17] MEDS: Acetaminophen 325 MG TABLET PO PRN ×3 (09:28→23:01)
[2022-01-17] MEDS ORDERED: *HR* LORazepam 2 MG/ML VIAL IVP ONE (10:23)
[2022-01-17] MEDS ORDERED: Lidocaine Viscous Oral Soln 15 ML SOLUTION MM PRN (12:39)
[2022-01-17] MEDS ORDERED: 0.9 % Sodium Chloride 500 ML IVC ONE (12:40)
[2022-01-17] MEDS: Melatonin 3 MG TABLET PO PRN (20:36)
[2022-01-17] MEDS: *HR* LORazepam 0.5 MG TABLET PO PRN (20:37)
[2022-01-18] MEDS: hydrOXYzine pamoate 25 MG CAPSULE PO PRN ×3 (00:09→17:36)
[2022-01-18] MEDS: Ketorolac 30 MG/ML VIAL IVP PRN ×4 (02:37→21:39)
[2022-01-18] MEDS ORDERED: *HR* LORazepam 0.5 MG TABLET PO ONE (03:06)
[2022-01-18] MEDS: CeFAZolin 2,000 MG/120 ML BAG IVPB SCH ×3 (03:22→20:19)
[2022-01-18] MEDS: *HR* Enoxaparin 40 MG/0.4 ML SYRINGE SQ SCH (04:08)
[2022-01-18 05:44] LABS: Basophils % 0.2 %; Eosinophils # 0.1 K/mcL (0.0-0.6); Eosinophils % 0.5 %; Hematocrit 26.2 % (35.3-44.9); Hemoglobin 8.7 g/dL (11.5-15.4); Immature Granulocytes % 4.4 % (0-4); Lymphocytes # 1.6 K/mcL (0.6-4.6); Lymphocytes % 8.6 %; Mean Corpuscular HGB Conc 33.2 g/dL (31.6-35.5); Mean Corpuscular Hemoglobin 28.4 pg (28.0-33.3); Mean Corpuscular Volume 85.6 fL (83.0-100.0); Mean Platelet Volume 9.2 fL (9.4-12.4); Monocytes # 0.5 K/mcL (0.0-1.3); Monocytes % 2.6 %; Neutrophils # 15.5 K/mcL (1.6-8.9); Platelet Count 502 K/mcL (140-400); Red Blood Count 3.06 M/mcL (3.82-4.97); Red Cell Distribution Width 14.9 % (11.5-14.5); Segmented Neutrophils % 83.7 %; White Blood Count 18.6 K/mcL (4.3-11.1)
[2022-01-18 06:03] LABS: BUN/Creatinine Ratio 14 (6-26); Blood Urea Nitrogen 8 mg/dL (6-20); Calcium 7.5 mg/dL (8.6-10.3); Carbon Dioxide 26 mEq/L (23-29); Chloride 103 mEq/L (98-107); Glucose 87 mg/dL (70-105); Osmolality,Calculated 280 (280-300); Potassium 3.4 mEq/L (3.5-5.1); Sodium 136 mEq/L (136-145); eGFR For African Americans > 60 (> 60); eGFR For Non-African Americans > 60 (> 60)
[2022-01-18] MEDS: Acetaminophen 325 MG TABLET PO PRN ×2 (06:50→12:53)
[2022-01-18] MEDS ORDERED: ALPRAZolam 0.5 MG TABLET PO ONE (11:44)
[2022-01-18] MEDS ORDERED: Acetaminophen/Butalbital/CaffeineTABLET PO ONE (17:19)
[2022-01-18 19:03] VITALS: BP 123/86; PULSE 74; TEMP 98.6; O2SAT 93
[2022-01-18] MEDS ORDERED: *HR* LORazepam 1 MG TABLET PO PRN (21:00)
[2022-01-18] MEDS: Ringers Solution, Lactated 1,000 ML IVC SCH (21:21)
== END 2022-01-18 22:10 | disposition left against medical advice (07) | DRG 710 ==
LOC: 3NENU
PROVIDERS: ADMIT Internal Medicine; ATTEND Internal Medicine